=== PATIENT | female | born 1955 | race Caucasian/White ===

== ENCOUNTER 2017-06-09 10:56 | Emergency (ER) | payer BC ==
[2017-06-09] MEDS: predniSONE 20 MG TAB PO (13:07)
[2017-06-09] MEDS: ALBUTEROL 0.083% (NEB) 2.5 MG/3 ML AMP NEB (13:10)
[2017-06-09] MEDS: IPRATROPIUM (NEB) 0.5 MG/2.5 ML AMP NEB (13:10)
== END 2017-06-09 15:01 | disposition home or self-care (01) ==
LOC: FTE 10:56
DX: J06.9 Acute upper respiratory infection, unspecified (principal); I10 Essential (primary) hypertension
CPT/HCPCS: 71045; 87400; 94664; 99284-25